=== PATIENT | male | born 1955 | race Caucasian/White ===

== ENCOUNTER 2018-07-04 22:36 | Emergency (ER) | payer OTHER, MEDICAID ==
[2018-07-04 23:28] LABS: BASOPHIL % 0.7 % (0-2); PLATELET COUNT 329 x10^3mcL (130-400)
[2018-07-04 23:32] LABS: RED CELL DISTRIBUTION WIDTH 18.3 % (11.5-14.5)
[2018-07-04 23:37] LABS: CALCIUM 7.9 mg/dL (8.5-10.1); CHLORIDE SERUM 106 mmol/L (98-107); CREATININE SERUM 0.9 mg/dL (0.7-1.3); GFR1 > 60 mL/min; GLUCOSE SERUM 135 mg/dL (74-106); POTASSIUM SERUM 4.5 mmol/L (3.5-5.1); SODIUM SERUM 140 mmol/L (136-145)
[2018-07-04 23:43] LABS: ALBUMIN 2.7 g/dL (3.4-5.0); ALKALINE PHOSPHATASE 108 U/L (46-116); ALT/SGPT 23 U/L (16-63); AST/SGOT 16 U/L (15-37); LIPASE 93 IU/L (73-393); TOTAL PROTEIN, SERUM 5.9 g/dL (6.4-8.2)
[2018-07-05 01:42] VITALS: BP 130/85
== END 2018-07-05 01:42 | disposition home or self-care (01) ==
LOC: ED 22:36
PROVIDERS: Emergency Medicine
DX: K52.9 Noninfective gastroenteritis and colitis, unspecified (principal); D50.9 Iron deficiency anemia, unspecified; F17.210 Nicotine dependence, cigarettes, uncomplicated
CPT/HCPCS: J2405; J7030

== ENCOUNTER 2020-03-29 14:40 | Emergency (ER) | payer OTHER, MEDICAID ==
[~2020-03-29] VITALS: Ht 172.7 cm; Wt 58.1 kg
[~2020-03-29 14:40] MED LIST: CLARITIN LIQUI-10 MG; GOOD NEIGHBOR P20 M2; IBU400 M2; METAMUCIL POWD575 G1 PO
[2020-03-29 15:14] VITALS: Ht 172.7 cm; Wt 58.1 kg
[2020-03-29 17:28] VITALS: BP 122/69
== END 2020-03-29 17:28 | disposition home or self-care (01) ==
LOC: ED 14:40
DX: K08.89 Other specified disorders of teeth and supporting structures (principal); R50.9 Fever, unspecified